=== PATIENT | male | born 1975 | race Caucasian/White ===

== ENCOUNTER 2016-04-13 09:58 | Outpatient (RCR) | payer OTHER ==
[2016-04-16] MEDS ORDERED: COZAAR100 MG PO (16:38)
[2016-04-16] MEDS ORDERED: PERCOCET 325 MG1 TA2 PO (18:48)
== END 2016-07-05 ==
LOC: WSOH
DX: M25.561 Pain in right knee (principal); M25.461 Effusion, right knee; W22.8XXA Striking against or struck by other objects, initial encounter; Y99.0 Civilian activity done for income or pay

== ENCOUNTER 2016-04-16 16:30 | Emergency (ER) | payer OTHER, BC ==
[~2016-04-16] VITALS: Ht 195.6 cm; Wt 97.7 kg
[2016-04-16 16:32] VITALS: TEMP 98
[2016-04-16] MEDS ORDERED: COZAAR100 MG PO (16:38)
[2016-04-16] MEDS ORDERED: PERCOCET 325 MG1 TA2 PO (18:48)
[2016-04-16 19:23] VITALS: BP 148/98; PULSE 78
== END 2016-04-16 19:30 | disposition home or self-care (01) ==
LOC: COL.ER 16:30
DX: M25.461 Effusion, right knee (principal); R26.2 Difficulty in walking, not elsewhere classified